=== PATIENT | female | born 1990 | race African-American/Black ===

== ENCOUNTER 2022-07-14 22:09 | Emergency (ER) | payer MEDICAID, OTHER ==
[~2022-07-14] VITALS: Ht 157.5 cm; Wt 73.0 kg
[~2022-07-14 22:09] MED LIST: PREN-88 PO
[2022-07-14 22:57] VITALS: BP 131/82
[2022-07-15 01:42] LABS: BASOPHILS % 0.6 % (0.0-2.0); EOSINOPHILS % 1.3 % (0.0-5.0); HEMATOCRIT. 38.7 % (36.0-48.0); HEMOGLOBIN. 12.4 g/dL (12.0-16.0); LYMPHOCYTES % 33.6 % (20.0-50.0); MEAN PLATELET VOLUME 9.3 fl (7.4-10.4); MONOCYTES % 10.8 % (2.0-8.0); NEUTROPHILS % 53.7 % (40.0-76.0); PLATELET 257 x1000/uL (130-400); RED BLOOD CELL COUNT 4.45 mill/uL (4.2-5.4)
[2022-07-15 02:31] LABS: CHLORIDE 108 mEq/L (98-107)
[2022-07-15 02:35] LABS: CLARITY URINE CLOUDY (CLEAR); COLOR URINE RED (YELLOW); KETONES URINE NEGATIVE (NEGATIVE); LEUKOCYTE ESTERASE URINE 1+ (NEGATIVE); NITRITE URINE NEGATIVE (NEGATIVE); OCCULT BLOOD URINE 3+ (NEGATIVE); PH URINE 5.5 (4.5-8.0); PROTEIN URINE 2+ (NEGATIVE); SPECIFIC GRAVITY URINE 1.029 (1.005-1.030); UROBILINOGEN URINE 0.2 E.U./dL (0.2-1.0)
[2022-07-15] MEDS ORDERED: CIPR500T5 PO (04:14)
[2022-07-15] MEDS ORDERED: NAPR-681 PO (04:14)
== END 2022-07-15 05:03 | disposition home or self-care (01) ==
LOC: ER 22:09
DX: N39.0 Urinary tract infection, site not specified (principal); R10.11 Right upper quadrant pain; Z91.018 Allergy to other foods
CPT/HCPCS: 36415; 71045; 76770; 80053; 81003; 81025; 85025; 99285